=== PATIENT | female | born 1995 | race Caucasian/White ===

== ENCOUNTER 2017-02-06 21:48 | Emergency (ER) | payer OTHER ==
[~2017-02-06] VITALS: Ht 149.9 cm; Wt 66.3 kg
[~2017-02-06 21:48] MED LIST: ATARAX,VISTARIL50 MG PO; ATARAX10 MG PO; CYMBALTA20 MG PO; MELATONIN PO; MOTRIN600 MG PO; ORTHO TRI-CYCL1 EACH PO; SEROQUEL200 MG PO; TRILEPTAL600 MG PO; XANAX0.25 MG PO
[2017-02-06 23:34] LABS: BASOPHIL COUNT 0.1 K/uL (0-0.1); EOSINOPHIL (%) 1.2 % (0-5); EOSINOPHIL COUNT 0.1 K/uL (0-0.3); HEMATOCRIT 44.4 % (36.0-46.0); IMMATURE GRANULOCYTE (%) 0.4 % (0.0-0.7); INSTRUMENT ABS NEUTROPHIL CT 4.9 K/uL; LYMPHOCYTE COUNT 2.9 K/uL (1.0-2.8); MCH 31.7 PG (29.0-34.0); MCHC 34.7 G/DL (30.0-36.0); MCV 91.4 FL (83-99); MEAN PLAT.VOLUME 8.7 uM^3 (9.5-12.4); MONOCYTE (%) 7.3 % (3-12); MONOCYTE COUNT 0.6 K/uL (0-0.8); NEUTROPHIL (%) 56.6 % (45-76); NEUTROPHIL COUNT 4.9 K/uL (1.8-6.4); PLATELET COUNT 304 K/uL (156-360); RBC DIS.WIDTH-CV 11.7 % (11.8-14.6); RBC DIS.WIDTH-SD 38.9 % (39-53); RED BLOOD COUNT 4.86 M/uL (3.80-5.20); WHITE BLOOD COUNT 8.6 K/uL (4.1-10.2)
[2017-02-06 23:45] LABS: CHLORIDE 105 mEq/L (99-109); POTASSIUM 3.6 mEq/L (3.7-5.4); SODIUM 142 mEq/L (136-147)
[2017-02-06 23:47] LABS: GLUCOSE 91 mg/dL (70-99)
[2017-02-06 23:48] LABS: ANION GAP 12 MEQ/L (2-14)
[2017-02-06 23:51] LABS: GFR ESTIMATE (CALCULATED) > 59 mL/min/
[2017-02-06 23:52] LABS: UREA NITROGEN (BUN) 8 mg/dL (9-23)
[2017-02-07 01:45] LABS: ADD MIUA? YES; BILIRUBIN NEGATIVE; BLOOD NEGATIVE; COLOR YELLOW ((YELLOW)); GLUCOSE (STRIP) NEGATIVE; KETONES 20; LEUKOCYTES NEGATIVE; NITRITE NEGATIVE; PROTEIN (STRIP) 30; SPECIFIC GRAVITY 1.023 (1.000-1.030); UROBILINOGEN 0.2 MG/DL (0.2-1.0)
[2017-02-07 02:09] LABS: BACTERIA RARE /HPF; CALCIUM OXALATE CRYSTALS 4+ /HPF; EPITHELIAL CELLS 1+ /HPF; MUCUS TRACE /LPF; RED BLOOD CELLS 20-30 /HPF (0-5); UCUL ADDED? NO; WHITE BLOOD CELLS 0-5 /HPF (0-5)
[2017-02-07] MEDS ORDERED: FLEXERIL10 MG PO (02:09)
[2017-02-07] MEDS ORDERED: ZOFRAN4 MG PO (02:09)
[2017-02-07] MEDS ORDERED: TORADOL10 MG PO (02:09)
[2017-02-07 02:17] VITALS: BP 138/98
== END 2017-02-07 02:18 | disposition home or self-care (01) ==
LOC: EME 21:48
DX: L02.31 Cutaneous abscess of buttock (principal); R50.9 Fever, unspecified; Z87.820 Personal history of traumatic brain injury; Z88.2 Allergy status to sulfonamides; Z88.0 Allergy status to penicillin
CPT/HCPCS: 80048; 81003; 83605; 85025; 99281; 99284

== ENCOUNTER 2017-06-26 17:24 | Emergency (ER) | payer OTHER ==
[~2017-06-26] VITALS: Ht 149.9 cm; Wt 68.5 kg
[~2017-06-26 17:24] MED LIST changes: +CLINDAMYCIN HCL75 MG PO; +FLEXERIL10 MG PO; +MOTRIN800 MG PO; +MYCOSTATIN 100,60 ML PO; +TORADOL10 MG PO; +ZOFRAN4 MG PO
[2017-06-26 18:42] LABS: HEMATOCRIT 41.3 % (36.0-46.0); MCH 31.9 PG (29.0-34.0); MCHC 35.1 G/DL (30.0-36.0); MCV 90.8 FL (83-99); MEAN PLAT.VOLUME 8.9 uM^3 (9.5-12.4); PLATELET COUNT 370 K/uL (156-360); RBC DIS.WIDTH-CV 11.4 % (11.8-14.6); RED BLOOD COUNT 4.55 M/uL (3.80-5.20); WHITE BLOOD COUNT 8.6 K/uL (4.1-10.2)
[2017-06-26 18:49] LABS: CHLORIDE 108 mEq/L (99-109); POTASSIUM 3.8 mEq/L (3.7-5.4); SODIUM 142 mEq/L (136-147)
[2017-06-26 18:51] LABS: GLUCOSE 91 mg/dL (70-99)
[2017-06-26 18:52] LABS: ANION GAP 14 MEQ/L (2-14)
[2017-06-26 18:55] LABS: GFR ESTIMATE (CALCULATED) > 59 mL/min/; UREA NITROGEN (BUN) 7 mg/dL (9-23)
[2017-06-26 19:03] LABS: QUANTITATIVE HCG < 4.0 MIU/ML
[2017-06-26 20:30] VITALS: BP 129/83
== END 2017-06-26 20:30 | disposition home or self-care (01) ==
LOC: EME 17:24
PROVIDERS: Physician Assistant
DX: R06.00 Dyspnea, unspecified (principal); F41.9 Anxiety disorder, unspecified; F17.210 Nicotine dependence, cigarettes, uncomplicated; I49.8 Other specified cardiac arrhythmias; G40.909 Epilepsy, unspecified, not intractable, without status epilepticus; F43.10 Post-traumatic stress disorder, unspecified; Z87.820 Personal history of traumatic brain injury; Z88.8 Allergy status to other drugs, medicaments and biological substances
CPT/HCPCS: 71020; 80048; 84702; 85027; 93005; 94640; 99281; 99283